=== PATIENT | female | born 1970 | race Caucasian/White ===

== ENCOUNTER → 2017-03-03 | Day surgery (SDC) | payer SELFPAY ==
[~2017-03-03] VITALS: Ht 177.8 cm; Wt 176.5 kg
[~2017-03-03] MED LIST: NORCO 5-325 TA1 EACH PO; XARELTO20 MG PO
--- NOTE | ~2017-03-03 | OR ---
PATIENT'S NAME: FELIBERTO [facility] AGE: 46 Y [address] ROOM: [place] [address] LOCATION: [facility] ADMIT DATE: 03/03/2017 OR/Procedure Report DISCHARGE DATE: FAMILY PHYSICIAN: Josue Kidd MD ATTENDING PHYSICIAN: Parish Quiroz SURGEON: Parish Quiroz MD IN [employer] REPRESENTATIVE: Yessy Brower PA-C. DATE OF PROCEDURE: 03/03/2017 PREOPERATIVE DIAGNOSIS: Cholelithiasis. POSTOPERATIVE DIAGNOSIS: Cholelithiasis. PROCEDURE: Laparoscopic cholecystectomy. FINDINGS: The dissection was difficult due to her morbid obesity. There was a large stone present with purulent-appearing bile. ESTIMATED BLOOD LOSS: Less than 50 mL. COMPLICATIONS: None. INDICATIONS: The patient is a 46-year-old female who presented with abdominal pain. She was found to have cholelithiasis. We discussed cholecystectomy with the patient; the risks, benefits, and alternatives. She elected to proceed. DESCRIPTION OF PROCEDURE: The patient was taken to the operating room. She was placed supine. She was given IV sedation. Her abdomen was prepped with ChloraPrep and sterilely draped. Local anesthetic was infiltrated superior to the umbilicus. A transverse incision was created. The abdomen was elevated. A Veress needle was inserted. Pneumoperitoneum was induced. Following this, a 5 mm trocar was inserted followed by insertion of the camera. There was no injury from initial trocar placement. Three more trocars were then positioned, an 11 mm epigastric and two 5 mm right subcostal ports. Skin overlying the peritoneum was first anesthetized prior to making the incisions. All 3 trocars were inserted under direct visualization. The gallbladder was grasped and elevated, although due to her obesity, it was difficult to elevate the gallbladder. The liver was large and fatty. The infundibulum was grasped, made it difficult to mobilize this. Ultimately, we were able to dissect down to the cystic duct and artery. With the weight of the liver and minimal working room, it was difficult to grasp the gallbladder and with the tension that was placed on this, it did place a small tear in the gallbladder. There was somewhat purulent-appearing bile present, this was suctioned from the abdominal cavity quite quickly. Once our critical window was obtained, we PATIENT'S NAME: FELIBERTO [facility] AGE: 46 Y [address] ROOM: [place] [address] LOCATION: [facility] ADMIT DATE: 03/03/2017 OR/Procedure Report DISCHARGE DATE: FAMILY PHYSICIAN: Josue Kidd MD ATTENDING PHYSICIAN: Parish Quiroz doubly clipped both cystic artery and duct, then removed the gallbladder from the liver bed. This was placed in an EndoCatch bag and brought out through the epigastric port site. It was a very large stone in the gallbladder. The liver bed was then inspected, it appeared hemostatic. Clips appeared to be in good position on both the cystic duct and artery. The area was irrigated. Fluid was removed. Using a suture passer and 0 Vicryl suture, the epigastric incision was closed. Pneumoperitoneum was released. The trocars were all removed. The skin edges were all approximated with 4-0 Monocryl suture. Steri-Strips and sterile dressings were placed. The patient was extubated and sent to recovery in good condition. PARISH QUIROZ MD BJO/modl /[id number] d: 03/03/171924 t: 03/05/17 1030, OPERATIVE SUMMARY
== END | disposition disaster alternative care site (69) ==
LOC: GPOC 02-24 14:00
PROC: 0FT44ZZ Resection of Gallbladder, Percutaneous Endoscopic Approach (ICD-10-PCS; principal; 2017-03-03)
DX: K80.10 Calculus of gallbladder with chronic cholecystitis without obstruction (principal); Z86.711 Personal history of pulmonary embolism; E66.01 Morbid (severe) obesity due to excess calories; Z68.43 Body mass index [BMI] 50.0-59.9, adult; Z79.01 Long term (current) use of anticoagulants; Z98.890 Other specified postprocedural states
CPT/HCPCS: J0694; J2001; J2405; J2765; J3010; J7120